=== PATIENT | male | born 1955 | race African-American/Black ===

== ENCOUNTER → 2016-10-02 | Outpatient (CLI) | payer OTHER ==
[2015-03-15 23:03] VITALS: BP 163/100
[~2016-10-02] MED LIST: IOHEXOL 240 MG/ML 50ML VIAL. PO ONE; IOHEXOL 300 MG/ML 100ML VIAL. IV ONE
--- NOTE | 2016-10-02 17:03 | KCIC ---
PROCEDURE CT chest abdomen and pelvis without contrast. HISTORY Cachexia, weakness, evaluate for cancer relapse. TECHNIQUE Helical CT imaging of the chest abdomen and pelvis is performed after oral contrast. IV contrast unable to to be administered due to unsuccessful IV access despite multiple attempts. PQRS: One or more the following individualized dose reduction techniques were utilized for the study: 1. Automated exposure control. 2. Adjustment of the mA and/or kV according to patient size. 3. Use of iterative reconstruction technique. COMPARISON None. 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 No adenopathy is seen in the chest, limited evaluation of the phylicia without IV contrast. There is coronary artery disease. The cardiac size is normal, no pericardial effusion. The central airways are patent. Calcified granuloma in the lingula. Minimal atelectasis or scarring in the inferior lingula. Lungs otherwise clear. No pleural abnormality. There is fatty infiltration of the liver, focal fatty sparing along the gallbladder fossa. There is dependent hyperdensity in the gallbladder that may be sludge versus wall thickening. The spleen, pancreas, and adrenal glands are normal. Mild bilateral pelviectasis without hydronephrosis. No perinephric stranding. 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 No obvious abnormality of the stomach. No dilated small bowel. The mild wall thickening of the rectosigmoid colon. There is sigmoid colon diverticulosis without evidence of diverticulitis. The appendix is normal. No abdominal adenopathy. Urinary bladder is mildly distended, otherwise normal. Prostate size normal. Mild pelvic free fluid. Grade 1 anterolisthesis of C7 on T1. No compression fracture in the thoracolumbar spine. IMPRESSION 1. No adenopathy in the chest abdomen or pelvis. 2. Mild wall thickening of the rectosigmoid colon, may be due to mild nonspecific colitis versus underdistention. 3. Sigmoid colon diverticulosis without evidence of diverticulitis. 4. Mild pelvic free fluid, abnormal. 5. Fatty infiltration of the liver. 6. Dependent hyperdensity in the gallbladder may be sludge versus wall thickening. Consider further evaluation with ultrasound. Electronically signed by: Coleman Murray MD (October 02, 2016 17:02:09)
--- NOTE | 2016-10-03 09:11 | KCIC ---
PROCEDURE CT scan of the neck without contrast 10/02/2016 HISTORY Cachexia, weakness. TECHNIQUE Unenhanced contiguous, 3 millimeter axial sections were obtained through the neck. Intravenous contrast was unable to be administered to inability by the technologist to establish IV access in this patient. One or more of the following individualized dose reduction techniques were utilized for this study: 1. Automated exposure control. 2. Adjustment of the mA and/or kV according to patient size. 3. Use of iterative reconstruction technique. FINDINGS Comparison study is dated 03/15/2015. This was performed at [facility]. The mucosal structures of the nasopharynx, oral pharynx, hypopharynx and larynx are within normal limits. The parotid and submandibular glands and the thyroid gland are within normal limits. No cervical lymphadenopathy is seen. Moderate atherosclerotic plaque formation is seen involving both carotid bifurcations. The patient is edentulous. Degenerative changes are seen involving the uncovertebral and facet joints throughout the cervical disc spaces. IMPRESSION No acute abnormality is seen. Electronically signed by: Roberto Jesus MD (October 03, 2016 09:09:49)
== END | disposition home or self-care (01) ==
LOC: KCIC CT 14:22
PROVIDERS: ATTEND Family Medicine
DX: R64 Cachexia (principal); R53.1 Weakness
CPT/HCPCS: 70490; 71250; 74176